=== PATIENT | female | born 1965 | race Caucasian/White ===

== ENCOUNTER 2018-07-27 15:54 | Emergency (ER) | payer SELFPAY ==
[~2018-07-27] VITALS: Ht 170.2 cm; Wt 108.9 kg
[2018-07-27] MEDS ORDERED: ALTEPLASE 100 MG/VIAL (ACTIVASE) IV ONE ×2 (16:04→16:05)
[2018-07-27] MEDS ORDERED: NS IV 1000 ML 1,000 ML IV SCH (16:04)
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
[2018-07-27 16:15] LABS: BASOPHILS % (AUTO) 0 % (0-10); EOSINOPHILS # (AUTO) 0.2 10^3/uL (0.0-0.3); EOSINOPHILS % (AUTO) 2 % (0-10); HEMATOCRIT 42 % (35-52); HEMOGLOBIN 14.4 G/DL (11.5-16.0); LYMPHOCYTES # (AUTO) 2.9 X 10^3 (1.0-4.0); LYMPHOCYTES % (AUTO) 31 % (12-44); MEAN CORPUSCULAR HEMOGLOBIN 28 PG (25-34); MEAN CORPUSCULAR HGB CONC 35 G/DL (32-36); MEAN CORPUSCULAR VOLUME 81 FL (80-99); MEAN PLATELET VOLUME 9.3 FL (7.4-10.4); MONOCYTES # (AUTO) 0.6 X 10^3 (0.0-1.0); MONOCYTES % (AUTO) 6 % (0-12); NEUTROPHILS # (AUTO) 5.7 X 10^3 (1.8-7.8); NEUTROPHILS % (AUTO) 61 % (42-75); PLATELET COUNT 333 10^3/uL (130-400); RED BLOOD COUNT 5.17 10^6/uL (4.35-5.85); RED CELL DISTRIBUTION WIDTH 13.6 % (10.0-14.5); WHITE BLOOD COUNT 9.3 10^3/uL (4.3-11.0)
--- NOTE | 2018-07-27 16:17 | Diagnostic Imaging Report ---
INDICATION: Possible stroke with slurred speech. TECHNIQUE: Noncontrast brain CT is performed and compared with 02/18/2015. FINDINGS: Portions of the study are limited due to motion artifact. There are no extra-axial fluid collections. No intracranial hemorrhage. No intracranial mass or mass effect. No midline shift. The ventricles are normal in size and position. Hilton-white differentiation appears preserved. Some portions of the temporal lobes are not well seen due to motion artifact. There is no definite hyperdense vessel sign. Calvarial windows show hyperostosis but no acute bony abnormality. Visualized portions of the orbits are normal. There is fluid in the left maxillary sinus. IMPRESSION: No acute intracranial abnormality with some limitation due to motion artifact. There is no hemorrhage. There is hyperostosis of the bony calvarium. There is opacification of the left maxillary sinus. Dictated by: Dictated on workstation # [id number]
[2018-07-27] MEDS ORDERED: LABETALOL HCL 20 MG/4 ML VIAL IV ONE ×2 (16:30→18:15)
[2018-07-27 16:31] LABS: ALANINE AMINOTRANSFERASE 47 U/L (0-55); ALKALINE PHOSPHATASE 88 U/L (40-136); BILIRUBIN,TOTAL 0.4 MG/DL (0.1-1.0); BUN/CREATININE RATIO 18; CALCIUM 9.6 MG/DL (8.5-10.1); CARBON DIOXIDE 27 MMOL/L (21-32); CHLORIDE 97 MMOL/L (98-107); CREATININE SERUM 0.84 MG/DL (0.60-1.30); GFR ESTIMATED > 60; GLUCOSE 358 MG/DL (70-105); POTASSIUM 3.8 MMOL/L (3.6-5.0); SODIUM 133 MMOL/L (135-145); TOTAL PROTEIN 7.7 GM/DL (6.4-8.2)
[2018-07-27 16:38] LABS: FIBRIN DEGRADATION PRODUCTS 0.33 UG/ML (0.00-0.49); PROTHROMBIN TIME PATIENT 12.8 SEC (12.2-14.7)
[2018-07-27] MEDS ORDERED: RECEIVED CONTRAST (Hold Metformin) IV SCH (16:45)
[2018-07-27] MEDS ORDERED: IOHEXOL 350 MG/ML 100 ML (OMNIPAQUE 350) VIAL IV ONE (16:45)
[2018-07-27] MEDS ORDERED: NS 250 ML (IVPB) BAG IV ONE (16:45)
[2018-07-27] MEDS ORDERED: LORazepam INJ 2 MG/ML (ATIVAN) VIAL ONE (17:02)
[2018-07-27 17:49] LABS: BILIRUBIN,URINE NEGATIVE (NEGATIVE); CLARITY,URINE CLEAR; COLOR,URINE YELLOW; GLUCOSE, URINE (UA) 4+ (NEGATIVE); KETONES,URINE NEGATIVE (NEGATIVE); LEUKOCYTE ESTERASE ,URINE NEGATIVE (NEGATIVE); NITRITE,URINE NEGATIVE (NEGATIVE); PH,URINE 5 (5-9); PROTEIN,URINE 2+ (NEGATIVE); UROBILINOGEN,URINE NORMAL (NORMAL)
[2018-07-27 17:59] LABS: AMORPHOUS SEDIMENT,UR FEW AMOR URATES /LPF; BACTERIA,URINE TRACE /HPF; RBC,URINE 0-2 /HPF; WBC,URINE RARE /HPF
--- NOTE | 2018-07-27 18:06 | Diagnostic Imaging Report ---
EXAMINATION: Chest radiograph, portable AP view. DATE: July 27, 2018 at 1737 hours. INDICATION: 52-year-old female, stroke protocol assessment. COMPARISON: February 18, 2015. FINDINGS: Stable overall appearance of the cardiomediastinal silhouette, given differences in technique. There is no identified pneumothorax. There is no large pleural effusion. There are mildly prominent interstitial opacities which are more prominent since the comparison exam. IMPRESSION: Mildly prominent bilateral pulmonary interstitial opacities. Differential diagnostic considerations would include pulmonary interstitial edema or atypical infection. Dictated by: Dictated on workstation # [id number]
--- NOTE | 2018-07-27 18:12 | Diagnostic Imaging Report ---
PROCEDURE: 1. CT head with intravenous contrast. 2. CT angiography of the head and neck with intravenous contrast. TECHNIQUE: 1. Pre and post contrast axial CT images at the level of the head were obtained. 2. Postcontrast axial CT angiography images at the level of the head and neck were obtained. Three-dimensional reformats were obtained and provided. DATE: July 27, 2018. INDICATION: 52-year-old female, slurred speech. Evaluation for stroke. COMPARISON: CT head without contrast July 27, 2018 at 1557 hours. FINDINGS: There is limitation of the evaluation relating to motion artifact as well as positioning of the patient. There is no acute intracranial hemorrhage based on initial very recent comparison CT head without contrast exam. There is no identified abnormal intracranial enhancement. There is no mass effect or midline shift. There is prominent quantum mottle artifact at the level of the neck relating to patient body habitus and difficulties with exposure. The left common carotid artery is patent. The left internal carotid artery is patent in its proximal segment and not well contrast opacified as it enters the carotid canal. There is essentially nondiagnostic assessment of the left internal carotid artery beginning at the level of the carotid canal and extending more superiorly. There is some blood flow noted within both anterior cerebral arteries. There is some blood flow noted within the left middle cerebral artery as well as the right middle cerebral artery. There is otherwise essentially nondiagnostic additional evaluation of both middle cerebral arteries. There is blood flow within both posterior cerebral arteries as well as the basilar artery. There is very minimal contrast opacification of these vessels. There is significant limitation of evaluation of the vertebral arteries relating to the degree of motion artifact as well as poor opacification of the vessels. Both vertebral arteries are conventional in origin. There are upper lobe changes of emphysema. Visualized portions of the lungs are grossly clear. There is nonspecific near-complete opacification of the left maxillary sinus. IMPRESSION: 1. Markedly limited exam relating to motion artifact, quantum mottle artifact, difficulty positioning the patient, and timing of contrast bolus. 2. No obvious abnormal intracranial enhancement. 3. Markedly limited CT angiography head and neck exam without obvious vascular occlusion. 4. Near-complete opacification of the left maxillary sinus which is nonspecific. Dictated by: Dictated on workstation # [id number]
--- OUTSIDE RECORDS SUMMARY | 2018-07-27 18:14 | XMS REPORT ---
Author Author SHARIF AGUAYO [facility] [place] eClinicalWorks Address Unknown Phone Unavailable Care Team Providers Care Aircraft Servicer Name Role Phone SHARIF AGUAYO CP Unavailable Allergies, Adverse Reactions, Alerts Substance Reaction Event Type N.K.D.A. Info Not Available Non Drug Allergy Problems Problem Type Condition ICD-9 Code Onset Dates Condition Status Assessment Multiple actinic keratoses 702.0 Active Problem Hypertension 401.9 Active Problem Low back pain 724.2 Active Problem Routine adult health maintenance V70.0 Active Assessment Hypertension 401.9 Active Assessment Low back pain 724.2 Active Problem Multiple actinic keratoses 702.0 Active Assessment Routine adult health maintenance V70.0 Active Medications Medication Code System Code Instructions Start Date End Date Status Dosage Lisinopril-Hydrochlorothiazide [facility] [address]-97 10-12.5 MG Orally Once a day May 06, 2015 1 tablet Cyclobenzaprine HCl [facility] [address]-54 5 MG Orally Three times a day Apr 1 tablet Procedures Procedure Coding System Code Date Office Visit, New Pt., Level 4 CPT-4 71936 May 06, 2015 Vital Signs Date/Time: May 06, 2015 Temperature 98.4 F Weight 236.8 lbs Height 67 in BMI 37.08 Index Blood Pressure Diastolic 96 mmHg Blood Pressure Systolic 142 mmHg Cardiac Monitoring Heart Rate 80 bpm Results No Known Results Summary Purpose eClinicalWorks Submission
--- OUTSIDE RECORDS SUMMARY | 2018-07-27 18:14 | XMS REPORT ---
Author Author SHARIF AGUAYO Organization e[employer] Address Unknown Phone Unavailable Care Team Providers Care Hand Spinner Name Role Phone SHARIF AGUAYO CP Unavailable Allergies No Known Allergies Problems Problem Type Condition ICD-9 Code Onset Dates Condition Status Problem Hypertension 401.9 Active Problem Low back pain 724.2 Active Problem Routine adult health maintenance V70.0 Active Assessment Hypertension 401.9 Active Assessment Low back pain 724.2 Active Problem Multiple actinic keratoses 702.0 Active Assessment Routine adult health maintenance V70.0 Active Medications No Known Medications Procedures Procedure Coding System Code Date COMPLETE CBC W/AUTO DIFF WBC CPT-4 79748 May 07, 2015 COMPREHEN METABOLIC PANEL CPT-4 72095 May 07, 2015 ASSAY THYROID STIM HORMONE CPT-4 98686 May 07, 2015 VENIPUNCT, ROUTINE* CPT-4 56744 May 07, 2015 LIPID PANEL CPT-4 12577 May 07, 2015 Results Name Result Date Reference Range Unit Abnormality Flag ROUTINE VENIPUNCTURE Summary Purpose eClinicalWorks Submission
--- OUTSIDE RECORDS SUMMARY | 2018-07-27 18:14 | XMS REPORT ---
Author Author JHON CAMP [facility] Address Unknown Care Team Providers Care Physical Therapy Coordinator Name Role Phone JHON CAMP Unavailable PROBLEMS Type Condition ICD9-CM Code BRF12-GG Code Onset Dates Condition Status SNOMED Code Problem Essential (primary) hypertension I10 Active 11487303 Problem Other hyperlipidemia E78.4 Active 97273996 Problem Lumbago with sciatica, unspecified side M54.40 Active 631582281 Problem Multiple actinic keratoses L57.0 Active 785911858 ALLERGIES No Known Allergies ENCOUNTERS Encounter Location Date Diagnosis [facility] [id number] [place] [phone] Aug, Dental examination Z01.20 and Dental caries K02.9 [facility] [id number] [place] [phone] May, Low back pain 724.2 and Hyperlipidemia 272.4 [facility] [id number] [place] [phone] Apr, Routine adult health maintenance V70.0 ; Hypertension 401.9 and Low back pain 724.2 [facility] [id number] [place] [phone] Apr, Routine adult health maintenance V70.0 ; Hypertension 401.9 ; Low back pain 724.2 and Multiple actinic keratoses 702.0 IMMUNIZATIONS No Known Immunizations SOCIAL HISTORY Never Assessed REASON FOR VISIT mac PLAN OF CARE VITAL SIGNS Height 67 in 2017-09-03 Blood pressure systolic 175 mmHg 2017-09-03 Blood pressure diastolic 100 mmHg 2017-09-03 MEDICATIONS Medication Instructions Dosage Frequency Start Date End Date Duration Status Lisinopril-Hydrochlorothiazide 10-12.5 MG Orally Once a day 1 tablet 24h Apr, Not-Taking RESULTS No Results PROCEDURES Procedure Date Ordered Result Body Site LTD ORAL EVALUATION - PROBLEM FOCUS Sep 03, 2017 INTRAORL-PERIAPICAL 1 FILM 97609 Sep 03, 2017 EXTRAC ERUPTED TOOTH/EXPOSED ROOT Sep 03, 2017 INTRAORL-PERIAPICAL EA ADD FILM Sep 03, 2017 EXTRAC ERUPTED TOOTH/EXPOSED ROOT Sep 03, 2017 INSTRUCTIONS MEDICATIONS ADMINISTERED No Known Medications MEDICAL (GENERAL) HISTORY Type Description Date Medical History IVDU--last used 2008 Medical History Hepatitis C Medical History hypertension Medical History hyperlipidemia Surgical History cholecystectomy 1992 Surgical History appendectomy 1992 Surgical History hysterectomy 1992 Hospitalization History bladder punctured with surgery 1992
--- OUTSIDE RECORDS SUMMARY | 2018-07-27 18:14 | XMS REPORT ---
Author Author SHARIF AGUAYO [facility] eClinicalWorks Address Unknown Phone Unavailable Care Team Providers Care Billing Specialist Name Role Phone SHARIF AGUAYO CP Unavailable Allergies, Adverse Reactions, Alerts Substance Reaction Event Type N.K.D.A. Info Not Available Non Drug Allergy Problems Problem Type Condition ICD-9 Code Onset Dates Condition Status Problem Routine adult health maintenance V70.0 Active Problem Hypertension 401.9 Active Problem Hyperlipidemia 272.4 Active Assessment Low back pain 724.2 Active Assessment Hyperlipidemia 272.4 Active Problem Low back pain 724.2 Active Problem Multiple actinic keratoses 702.0 Active Medications Medication Code System Code Instructions Start Date End Date Status Dosage Diclofenac Sodium [facility] [address]-78 50 MG Orally Twice a day May 14, 2015 Jun 13, 2015 1 tablet Medrol (Joao) [facility] [address]-45 4 MG Orally daily May 14, 2015 May 20, 2015 as directed Lisinopril-Hydrochlorothiazide [facility] [address]-08 10-12.5 MG Orally Once a day May 06, 2015 1 tablet Baclofen [facility] [address]-52 10 MG Orally Three times a day May 14, 2015 Jun 13, 2015 1 tablet with food or milk Procedures Procedure Coding System Code Date Office Visit, Est Pt., Level 3 CPT-4 72844 May 14, 2015 Vital Signs Date/Time: May 14, 2015 Temperature 98.4 F Weight 236.1 lbs Height 67 in BMI 36.97 Index Blood Pressure Diastolic 84 mmHg Blood Pressure Systolic 132 mmHg Cardiac Monitoring Heart Rate 72 bpm Results No Known Results Summary Purpose eClinicalWorks Submission
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
[2018-07-27] MEDS ORDERED: LORazepam INJ 2 MG/ML (ATIVAN) VIAL IVP ONE (18:15)
[2018-07-27] MEDS ORDERED: AZITHROMYCIN INJECTION 500 MG in NS (IVPB) 250 ML IV ONE (18:30)
[2018-07-27] MEDS ORDERED: cefTRIAXone FOR IV USE 1,000 MG in NS (IVPB) 50 ML IV ONE (18:30)
[2018-07-27 18:44] LABS: AMPHETAMINE SCREEN, URINE POSITIVE (NEGATIVE); BARBITURATE SCREEN URINE NEGATIVE (NEGATIVE); BENZODIAZEPINES SCREEN URINE NEGATIVE (NEGATIVE); CANNABINOID SCREEN, URINE POSITIVE (NEGATIVE); COCAINE SCREEN URINE NEGATIVE (NEGATIVE); METHADONE STAT NEGATIVE (NEGATIVE); METHAMPHETAMINE SCREEN URINE S POSITIVE (NEGATIVE); OPIATE SCREEN URINE NEGATIVE (NEGATIVE); OXYCODONE STAT NEGATIVE (NEGATIVE); PROPOXYPHENE STAT NEGATIVE (NEGATIVE); TRICYCLIC ANTIDEPRESSANTS SCRE NEGATIVE (NEGATIVE)
[2018-07-27] MEDS ORDERED: RT-ALBUTEROL/IPRATROPIUM 3 ML (DUONEB) VIAL ONE (19:46)
[2018-07-27] MEDS ORDERED: NS IV 500 ML 500 ML IV ONE (20:33)
[2018-07-27] MEDS ORDERED: NS IV 500 ML 500 ML ONE (20:33)
[2018-07-27 20:37] VITALS: BP 159/89
== END 2018-07-27 21:04 | disposition short-term general hospital (02) ==
LOC: EDUNIT# 15:54 → ER 15:55
DX: I63.50 Cerebral infarction due to unspecified occlusion or stenosis of unspecified cerebral artery (principal); R56.9 Unspecified convulsions; I10 Essential (primary) hypertension; E78.00 Pure hypercholesterolemia, unspecified; Z91.14 Patient's other noncompliance with medication regimen; Z90.89 Acquired absence of other organs; Z90.710 Acquired absence of both cervix and uterus; Z98.51 Tubal ligation status
CPT/HCPCS: 36415; 51702; 70450; 70496; 70498; 71045; 80053; 80306; 81000; 82962; 84484; 85025; 85379; 85610; 85730; 92977; 93005; 93041; 94640; 99291; 99292